=== PATIENT | male | born 1990 | race Caucasian/White ===

== ENCOUNTER 2018-07-31 11:17 | Emergency (ER) | payer OTHER ==
[~2018-07-31] VITALS: Ht 175.3 cm; Wt 93.0 kg
[2018-07-31] MEDS ORDERED: VALACYCLOVIR1000 MG PO ×2 (12:19)
[2018-07-31 12:50] VITALS: BP 153/96
== END 2018-07-31 12:40 | disposition home or self-care (01) ==
LOC: ER 11:17
DX: A60.00 Herpesviral infection of urogenital system, unspecified (principal); Z76.0 Encounter for issue of repeat prescription; F17.210 Nicotine dependence, cigarettes, uncomplicated